=== PATIENT | male | born 1950 | race Caucasian/White ===

== ENCOUNTER → 2016-07-08 | Outpatient (CLI) | payer MEDICARE, OTHER ==
[~2016-07-08] MED LIST: ABILIFY; ABILIFY PO; ABILIFY5 MG PO; ADVAIR 250/28 DISKU1 IH; ALAVERT10 M1 PO; ALBUTEROL0.09 MG/A1 IH; ALLOPURINOL300 MG PO; AMLACTIN TP; AMMONIUM LACTATE121 TOP; AMOXICILLIN 50500 MG PO; ARICEPT10 MG PO; ASPIR-LOW81 MG PO; ASPIRIN E.C. 8181 MG PO; ATARAX PO; BENZTROPINE1 MG PO; BUDEPRION SR100 MG PO; BUPROPION HCL75 MG PO; BUSPAR DIVIDOSE15 MG PO; CENTRUM1 TAB PO; CEPHALEXIN500 M1; CEPHALEXIN500 M1 PO; COGENTIN PO; DESYREL 100MG100 MG PO; FLAGYL500 MG PO; FLUNISOLIDE NS; GLUCOSAMINE; GLUCOSAMINE PO; HALCION0.25 MG PO; HYDROCORTISO28.35 G1 TP; HYDROXYZINE PAM50 M1 PO; IBU600 MG PO; IBUPROFEN600 MG PO; IMITREX100 MG PO; IRON325 M1 PO; LEVAQUIN 5500 MG/TA1 PO; LISINOPRIL40 MG PO; LUNESTA3 MG PO; MORPHINE; MORPHINE SULFAT30 M5 PO; MOTRIN 600600 MG/TAB PO; MS CONTIN 330 MG/TAB PO; MULTIPLE VITAMI1 CAP PO; MVI; NAMENDA 10MG TA10 MG PO; NAMENDA5 MG PO; NASACORT AQ N16.5 GM NS; NASAREL0.025 MG/1 NAS; NEOMYCIN AND PO20 ML; NIACIN TIME RE500 MG PO; NORCO 325 MG-7.1 TAB PO; NORVASC 10MG10 MG PO; ORAMORPH SR30 MG PO; PENTASA PO; PHENERGAN 25 TA25 MG PO; PRAVACHOL 40MG40 MG PO; PREDNISONE10 MG PO; PREDNISONE20 MG PO; PRILOSEC 20MG20 MG PO; PRILOSEC PO; PRISTIQ 50 MG T50 MG PO; PRISTIQ50 M1 PO; PROAIR HFA0.09 MG/AC IH; PROBIOTIC FORMU1 CAP PO; PROSCAR 5MG5 MG PO; PROVENTIL0.09 MG/A1 IH; PROVIGIL; PROVIGIL PO; PROVIGIL200 MG PO; RANITIDINE HYD150 MG PO; RANITIDINE150 MG PO; RHINOCORT NAS; ROWASA RC; RT ADVAIR 228 DISKUS IH; RT ADVAIR 528 DISKUS IH; SF 5000 PLUS1.1% DE; SINGULAIR 110 MG/TAB PO; SINGULAIR10 MG PO; SUP RC; VIIBRYD10 MG PO; VIIBRYD40 MG PO; VITAMIN B-1000 MCG/T PO; VITAMIN B1100 MCG/ML IM; VITAMIN C500 MG PO; VITAMIN D NATU400 IU PO; VITAMIN D3400 I1 PO; VTAMINC250TA PO; WELLBUTRIN 100100 MG PO; WELLBUTRIN 75MG75 MG PO; WELLBUTRIN XL150 MG PO; ZESTRIL; ZESTRIL40 MG PO; ZOMIG 5MG TAB5 MG PO; ZYLOPRIM 300MG300 MG PO; [UNRECOGNIZED DRUG - OTHER] TP
== END ==
LOC: BHSO 08:56
DX: F33.42 Major depressive disorder, recurrent, in full remission (principal)

== ENCOUNTER → 2016-11-07 | Outpatient (CLI) | payer MEDICARE, OTHER | LOC: MC.RAD 08:30 | DX: R92.2 Inconclusive mammogram (principal) ==

== ENCOUNTER → 2017-01-06 | Outpatient (CLI) | payer MEDICARE, OTHER | LOC: BHSO 08:47 | DX: F33.42 Major depressive disorder, recurrent, in full remission (principal) ==

== ENCOUNTER → 2017-07-10 | Outpatient (CLI) | payer MEDICARE, OTHER | LOC: BHSO 13:55 | DX: F33.42 Major depressive disorder, recurrent, in full remission (principal) | CPT/HCPCS: G0463 ==

== ENCOUNTER → 2017-07-27 | Outpatient (CLI) | payer MEDICARE, OTHER | LOC: COL.LAB 08:59 | DX: S79.812A Other specified injuries of left hip, initial encounter (principal) ==

== ENCOUNTER → 2017-07-30 | Outpatient (REF) | LOC: ZMSC 11:07 | DX: Z01.89 Encounter for other specified special examinations (principal) ==

== ENCOUNTER → 2017-12-28 | Outpatient (CLI) | payer MEDICARE, OTHER | LOC: BHSO 13:25 | DX: F33.42 Major depressive disorder, recurrent, in full remission (principal) | CPT/HCPCS: G0463 ==

== ENCOUNTER → 2018-06-28 | Outpatient (CLI) | payer MEDICARE, OTHER | LOC: BHSO 09:58 | DX: F33.41 Major depressive disorder, recurrent, in partial remission (principal) | CPT/HCPCS: G0463 ==

== ENCOUNTER → 2018-12-28 | Outpatient (CLI) | payer MEDICARE, OTHER | LOC: BHSO 09:58 | DX: F33.42 Major depressive disorder, recurrent, in full remission (principal) | CPT/HCPCS: G0463 ==

== ENCOUNTER 2019-06-17 13:02 | Emergency (ER) | payer MEDICARE, OTHER ==
[~2019-06-17] VITALS: Ht 167.6 cm; Wt 88.2 kg
[2019-06-17 13:10] VITALS: TEMP 97.7
[2019-06-17 14:36] VITALS: BP 131/79; PULSE 75
== END 2019-06-17 14:55 | disposition home or self-care (01) ==
LOC: COL.ER 13:02
DX: S73.015A Posterior dislocation of left hip, initial encounter (principal); M24.452 Recurrent dislocation, left hip; I10 Essential (primary) hypertension; E78.00 Pure hypercholesterolemia, unspecified; F03.90 Unspecified dementia, unspecified severity, without behavioral disturbance, psychotic disturbance, mood disturbance, and anxiety; Z79.82 Long term (current) use of aspirin; Z79.51 Long term (current) use of inhaled steroids; Z87.828 Personal history of other (healed) physical injury and trauma; W19.XXXA Unspecified fall, initial encounter; Y92.009 Unspecified place in unspecified non-institutional (private) residence as the place of occurrence of the external cause
CPT/HCPCS: J2405; J2704; J7030; L1846

== ENCOUNTER → 2019-12-22 | Outpatient (CLI) | payer MEDICARE, OTHER | LOC: BHSO 10:52 | DX: F33.42 Major depressive disorder, recurrent, in full remission (principal) | CPT/HCPCS: G0463 ==

== ENCOUNTER 2022-12-28 13:18 | Emergency (ER) | payer MEDICARE, OTHER ==
[~2022-12-28] VITALS: Ht 167.6 cm; Wt 90.9 kg
[2022-12-28 13:20] VITALS: TEMP 98.2
[2022-12-28 14:39] VITALS: BP 132/98; PULSE 66
== END 2022-12-28 14:50 | disposition home or self-care (01) ==
LOC: COL.ER 13:18
DX: M24.452 Recurrent dislocation, left hip (principal)
CPT/HCPCS: J2704; J7030

== ENCOUNTER 2023-04-23 07:00 | Outpatient (CLI) | payer MEDICARE, OTHER ==
[~2023-04-23] VITALS: Ht 167.6 cm; Wt 94.6 kg
[2023-04-23 08:00] VITALS: BP 139/69; PULSE 62; TEMP 96.9
[2023-04-23] MEDS ORDERED: PROBIOTIC BLEN1 EACH PO (08:42)
[2023-04-23] MEDS ORDERED: CIALIS5 MG PO (08:43)
[2023-04-23] MEDS ORDERED: ASPIRIN 81M81 MG/TA2 PO (08:46)
[2023-04-23] MEDS ORDERED: FLOMAX 0.40.4 MG/CAP PO (08:48)
[2023-04-23] MEDS ORDERED: DESYREL DIVIDO150 M1 PO (08:49)
[2023-04-23] MEDS ORDERED: RT ADVAIR 128 DISKUS IH (08:51)
== END 2023-04-23 09:08 ==
LOC: EUO 07:00
DX: M25.552 Pain in left hip (principal)
CPT/HCPCS: C1751

== ENCOUNTER 2023-08-07 12:25 | Inpatient (IN) | payer MEDICARE, OTHER ==
[~2023-08-07] VITALS: Ht 167.6 cm; Wt 95.8 kg
[~2023-08-07 12:25] MED LIST changes: +ASPIRIN 81M81 MG/TA2 PO; +CIALIS5 MG PO; +DESYREL DIVIDO150 M1 PO; +FLOMAX 0.40.4 MG/CAP PO; +PROBIOTIC BLEN1 EACH PO; +RT ADVAIR 128 DISKUS IH
[2023-08-11] MEDS ORDERED: LR 1,000 ML IV SCH (09:15)
[2023-08-11] MEDS ORDERED: Meclizine 25 MG TAB PO SCH (09:15)
[2023-08-12] VITALS (13 sets, daily range): BP systolic 118–156; BP diastolic 72–89; PULSE 60–101; TEMP 97.8–99.2
[2023-08-12] MEDS ORDERED: oxyCODONE ER (12-HR) 20 MG TAB PREOP X1 PO SCH (06:00)
[2023-08-12] MEDS ORDERED: Celecoxib 400 MG PREOP X1 PO SCH (06:00)
[2023-08-12] MEDS ORDERED: Pregabalin 150 MG CAP PREOP X1 PO SCH (06:00)
[2023-08-12 09:56] LABS: COLLECTION METHOD CATHETER
[2023-08-12 10:04] LABS: PH 5.5 (5.0-8.5); URINE APPEARANCE CLEAR (CLEAR/HAZY); URINE BLOOD 3+ (NEGATIVE); URINE COLOR Dark Yellow (YELLOW); URINE GLUCOSE NEGATIVE (NEGATIVE); URINE KETONE TRACE (NEGATIVE); URINE NITRATE NEGATIVE (NEGATIVE); URINE PROTEIN(semi-quant) 2+ (NEGATIVE)
[2023-08-12 10:22] LABS: BUDDING YEAST PRESENT (NOT PRESENT); SQUAMOUS EPITHELIAL 0-2 /hpf (0-10); URINE BACTERIA NONE SEEN /hpf (NONE SEEN); URINE RBC >50 /hpf (0-2); URINE WBC 0-2 /hpf (0-2)
[2023-08-12] MEDS ORDERED: CIPRO 500MG TA500 MG PO (10:22)
[2023-08-12] MEDS ORDERED: Lidocaine PF 2% (20 MG/ML) 5 ML VIAL ONE (10:47)
[2023-08-12] MEDS ORDERED: Midazolam 2 MG/2 ML VIAL ONE (10:47)
[2023-08-12] MEDS ORDERED: MORPHINE SULFATE 0.5 MG/ML ONE (11:25)
[2023-08-12] MEDS ORDERED: NORVASC 10MG10 MG PO (11:28)
[2023-08-12] MEDS ORDERED: ARICEPT10 MG PO (11:29)
[2023-08-12] MEDS ORDERED: VITAMIN D 400400 IU PO (11:29)
[2023-08-12] MEDS ORDERED: CLARITIN 1010 MG/TAB PO (11:30)
[2023-08-12] MEDS ORDERED: PRINIVIL40 MG PO (11:30)
[2023-08-12] MEDS ORDERED: PRISTIQ 50 MG T50 MG PO (11:32)
[2023-08-12] MEDS ORDERED: PROBIOTIC-MAJOR PO (11:33)
[2023-08-12] MEDS ORDERED: MULTI VITAMINS1 TAB PO (11:34)
[2023-08-12] MEDS ORDERED: VTAMINC250TA PO (11:35)
[2023-08-12] MEDS ORDERED: FOLIC ACID0.4 MG PO (11:36)
[2023-08-12] MEDS ORDERED: PENTASA250 MG PO (11:49)
[2023-08-12] MEDS ORDERED: ASPIRIN E.C. 8181 MG PO (11:54)
[2023-08-12] MEDS ORDERED: PRAVACHOL 40MG40 MG PO (11:55)
[2023-08-12] MEDS ORDERED: Tranexamic Acid 1,000 MG/10 ML VIAL ONE (12:46)
[2023-08-12] MEDS ORDERED: Morphine 4 MG/ML VIAL IV PRN (13:15)
[2023-08-12] MEDS ORDERED: Morphine 2 MG/1 ML VIAL [PACU/SDC ONLY] IV PRN (13:15)
[2023-08-12] MEDS ORDERED: HYDROmorphone 1 MG/1 ML SYRINGE [PACU/SDC ONLY] IV PRN (13:15)
[2023-08-12] MEDS ORDERED: [UNRECOGNIZED DRUG - OTHER] IT SCH (13:15)
[2023-08-12] MEDS ORDERED: Naloxone 0.4 MG/ML VIAL IV PRN ×3 (13:15→15:45)
[2023-08-12] MEDS ORDERED: Meperidine 50 MG/ML 1 ML VIAL IV PRN (13:15)
[2023-08-12] MEDS ORDERED: diphenhydrAMINE 25 MG CAP PO PRN (13:15)
[2023-08-12] MEDS ORDERED: fentaNYL 50 MCG/ML 1 ML SYRINGE/VIAL [PACU/SDC ONLY] IV PRN (13:15)
[2023-08-12] MEDS ORDERED: droPERidol 2.5 MG/ML 2 ML VIAL IV PRN (13:15)
[2023-08-12] MEDS ORDERED: Ondansetron 4 MG/2 ML VIAL IV PRN ×2 (13:15)
[2023-08-12] MEDS ORDERED: ePHEDrine 50 MG/ML VIAL ONE (13:17)
[2023-08-12] MEDS ORDERED: Promethazine 50 MG/ML 1 ML VIAL IM PRN (15:45)
[2023-08-12] MEDS ORDERED: traMADol 50 MG TAB PO PRN (16:00)
[2023-08-12] MEDS ORDERED: ULTRAM 50MG TAB50 MG PO (16:14)
[2023-08-12] MEDS ORDERED: CELEBREX 200MG200 MG PO (16:14)
[2023-08-12] MEDS ORDERED: ASPI325T6 PO (16:14)
[2023-08-12] MEDS ORDERED: TYLENOL 500MG500 MG PO (16:15)
[2023-08-12] MEDS ORDERED: Acetaminophen 500 MG TAB PO SCH (16:38)
[2023-08-12] MEDS ORDERED: ceFAZolin 2 G in Water For Injection,Sterile 20 ML IV SCH (20:00)
[2023-08-12] MEDS ORDERED: traZODone 50 MG TAB PO SCH (21:00)
[2023-08-12] MEDS ORDERED: Memantine 10 MG TAB PO SCH (21:00)
[2023-08-12] MEDS ORDERED: Finasteride 5 MG TAB PO SCH (21:00)
[2023-08-12] MEDS ORDERED: MESALAMINE PO SCH (21:00)
[2023-08-12] MEDS ORDERED: Pravastatin 20 MG TAB PO SCH (21:00)
[2023-08-12] MEDS ORDERED: busPIRone 7.5 MG TABLET PO SCH (21:00)
[2023-08-12] MEDS ORDERED: Ciprofloxacin 500 MG TAB PO SCH (21:00)
[2023-08-13] VITALS (11 sets, daily range): BP systolic 103–140; BP diastolic 70–80; PULSE 69–89; TEMP 98–99.4
[2023-08-13 06:39] LABS: HEMOGLOBIN 10.3 g/dl (13.5-18.0)
[2023-08-13] MEDS ORDERED: Omeprazole 20 MG **** subs to Pantoprazole 40 MG PO SCH (07:00)
[2023-08-13] MEDS ORDERED: Montelukast 10 MG TAB PO SCH (09:00)
[2023-08-13] MEDS ORDERED: Celecoxib 200 MG CAP PO SCH (09:00)
[2023-08-13] MEDS ORDERED: Allopurinol 300 MG TAB PO SCH (09:00)
[2023-08-13] MEDS ORDERED: Lisinopril 20 MG TAB PO SCH (09:00)
[2023-08-13] MEDS ORDERED: Donepezil 5 MG TAB PO SCH (09:00)
[2023-08-13] MEDS ORDERED: amLODIPine 10 MG TAB PO SCH (09:00)
[2023-08-13] MEDS ORDERED: Loratadine 10 MG TAB PO SCH (09:00)
[2023-08-14] VITALS: BP 120/78; PULSE 74; TEMP 97.9
[2023-08-14 00:19] VITALS: BP_SYST 120
[2023-08-14 04:00] VITALS: BP 117/74; PULSE 76; TEMP 98.2
[2023-08-14 04:52] VITALS: BP_SYST 117
[2023-08-14 06:57] LABS: HEMOGLOBIN 9.7 g/dl (13.5-18.0)
[2023-08-14 08:43] VITALS: BP 104/67; PULSE 80; TEMP 97.9
[2023-08-14 09:00] VITALS: BP_SYST 104
== END 2023-08-14 10:10 | disposition home or self-care (01) | DRG 468 ==
LOC: SURG 08-12 08:58 → INPTSU 08-12 08:58 → SDCO 08-12 13:15 → EDSTATUS 08-12 14:00 → SURG 08-12 15:53
PROVIDERS: Physician Assistant; ADMIT Orthopaedic Surgery
PROC: 0SPB0JZ Removal of Synthetic Substitute from Left Hip Joint, Open Approach (ICD-10-PCS; 2023-08-12)
PROC: 0SRB0J9 Replacement of Left Hip Joint with Synthetic Substitute, Cemented, Open Approach (ICD-10-PCS; principal; 2023-08-12 13:15)
DX: T84.52XA Infection and inflammatory reaction due to internal left hip prosthesis, initial encounter (principal); I10 Essential (primary) hypertension; F32.A Depression, unspecified; M10.9 Gout, unspecified; E78.00 Pure hypercholesterolemia, unspecified
CPT/HCPCS: A6197; A9284; C1713; C1776; J0690; J2250; J2274; J2704; J7120

== ENCOUNTER 2023-08-09 19:34 | Emergency (ER) | payer MEDICARE, OTHER ==
[~2023-08-09] VITALS: Ht 167.6 cm; Wt 92.7 kg
[2023-08-09] MEDS ORDERED: NS 1,000 ML IV ONE (20:30)
[2023-08-09 20:35] LABS: BASO % 0.2 % (0.0-2.0); EOS % 0.3 % (0.0-4.0); GRAN # 9.6 K/mm3 (1.4-6.5); GRAN % 78.4 % (42.2-75.2); HEMOGLOBIN 12.6 g/dl (13.5-18.0); LYMPH # 1.2 K/mm3 (1.2-3.4); LYMPH % 9.5 % (20.0-51.0); MEAN CELL VOLUME 87 fl (80.0-100.0); MEAN CORPUSCULAR HEMOGLOBIN 28 pg (27-31); MEAN CORPUSCULAR HGB CONC 32 g/dl (33.0-37.0); MEAN PLATELET VOLUME 9.7 fl (7.4-10.4); MONO # 1.4 K/mm3 (0.1-0.6); MONO % 11.2 % (1.7-9.3); PLATELET COUNT 337 K/mm3 (130-400); REDCELL DISTRIBUTION WIDTH-CV 14.5 % (11.5-14.5)
[2023-08-09 20:51] LABS: ALBUMIN 2.5 g/dL (3.4-4.8); CALCIUM 9.3 mg/dL (8.4-10.2); CREATININE, serum 0.84 mg/dL (0.72-1.25); POTASSIUM 3.5 mEq/L (3.5-4.5); TOTAL PROTEIN 7.1 g/dl (6.2-8.1)
[2023-08-09 21:56] LABS: URINE APPEARANCE CLEAR (CLEAR/HAZY); URINE BLOOD 3+ (NEGATIVE); URINE COLOR YELLOW (YELLOW); URINE GLUCOSE NEGATIVE (NEGATIVE); URINE KETONE NEGATIVE (NEGATIVE); URINE NITRATE NEGATIVE (NEGATIVE); URINE PROTEIN(semi-quant) 2+ (NEGATIVE)
[2023-08-09 22:01] LABS: STREP A NEGATIVE
[2023-08-09 22:11] LABS: COLLECTION METHOD CLEAN CATCH
[2023-08-09] MEDS ORDERED: cefTRIAXone 1 G in Water For Injection,Sterile 10 ML IV ONE (22:15)
[2023-08-09 23:10] VITALS: BP 142/103; PULSE 89; TEMP 99.3
== END 2023-08-09 23:10 | disposition home or self-care (01) ==
LOC: COL.ER 19:34
PROVIDERS: Personal Emergency Response Attendant
DX: N39.0 Urinary tract infection, site not specified (principal)
CPT/HCPCS: J0696; J7030